=== PATIENT | female | born 2000 | race Caucasian/White ===

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

== ENCOUNTER → 2021-07-19 13:11 | Outpatient (CLI) | payer OTHER, SELFPAY ==
[2021-07-19 15:13] LABS: HCG,Quantitative 29118 mIU/ml (0-5.42)
== END ==
PROVIDERS: Visit Provider Nurse Practitioner Obstetrics & Gynecology
DX: N92.6 Irregular menstruation, unspecified (principal)
CPT/HCPCS: 36415; 84702

== ENCOUNTER → 2021-08-20 17:58 | Outpatient (CLI) | payer OTHER, SELFPAY ==
[2021-08-22 23:13] LABS: Neisseria gonorrhoeae, NAA Negative (Negative)
== END ==
PROVIDERS: PCP Internal Medicine; Visit Provider Nurse Practitioner Obstetrics & Gynecology
DX: Z34.90 Encounter for supervision of normal pregnancy, unspecified, unspecified trimester (principal)
CPT/HCPCS: 87491; 87591

== ENCOUNTER → 2021-08-21 12:18 | Outpatient (CLI) | payer OTHER, SELFPAY ==
[2021-08-21 13:19] LABS: Basophils % 0.3 % (0.1-2.0); Eosinophils # 0.4 K/mm3 (0.0-0.4); Eosinophils % 3.8 % (0.1-12.0); Hematocrit 36.6 % (37.0-47.0); Hemoglobin 11.3 g/dL (12.2-16.2); Lymphocytes # 1.6 K/mm3 (0.7-4.5); Lymphocytes % 14.6 % (10-50); Mean Corpuscular Hemoglobin 21.8 pg (27.0-31.2); Mean Corpuscular Volume 70.3 fl (81-99); Mean Platelet Volume 6.6 fl (7.4-10.4); Monocytes # 0.4 K/mm3 (0.1-1.0); Monocytes % 3.5 % (1.7-9.3); Neutrophils # 8.2 K/mm3 (1.8-7.8); Neutrophils % 77.7 % (37.0-80.0); Platelet Count 444 K/mm3 (142-424); White Blood Count 10.6 K/mm3 (4.5-13.0)
[2021-08-22 10:14] LABS: HSV 2 IgG, Type Spec <0.91 index (0.00-0.90); Rubella Antibodies, IgG 3.05 index (Immune >0.99)
[2021-08-22 12:35] LABS: HIV Screen 4th Generation wRfx Non Reactive (Non Reactive); Hepatitis B Surface Antigen Negative (Negative); Hepatitis C Antibody <0.1 s/co ratio (0.0-0.9); Rapid Plasma Reagin Ab Titer Non Reactive (NonRea<1:1)
== END ==
PROVIDERS: PCP Internal Medicine; Visit Provider Nurse Practitioner Obstetrics & Gynecology
DX: Z34.90 Encounter for supervision of normal pregnancy, unspecified, unspecified trimester (principal)
CPT/HCPCS: 36415; 85025; 86592; 86695; 86703; 86762; 86790; 86850; 87340; 87380; G0432

== ENCOUNTER → 2021-08-23 13:00 | Outpatient (CLI) | payer OTHER, SELFPAY ==
--- NOTE | 2021-08-23 13:00 | US_ITS ---
FINAL REPORT CLINICAL HISTORY: 20wk + anatomy scan-US OB COMPLETE FINDINGS: There is a single live intrauterine gestation. Presentation is breech. The cervix is closed and measures 4 cm. Placenta is posterior and fundal. Cardiac activity is confirmed at 149 bpm. The uterus is otherwise normal. The ovaries are not visualized. The fetus is active. Three-vessel cord with satisfactory umbilical cord insertion. Four-chamber heart is noted. brain and ventricles are unremarkable. Chest and diaphragm are unremarkable. ABDOMEN: Both kidneys are unremarkable. Stomach is unremarkable. SPINE: No anomalies identified. Both arms and legs noted. AMNIOTIC FLUID: Appropriate amount. MEASUREMENTS: ULTRASOUND AGE: 23 weeks 0 days. ESTIMATED WEIGHT: 586 g BPD: 5.5 cm consistent with 22 weeks 6 days. OFD: 6.8 cm consistent with 22 weeks 2 days. HC: 19.5 cm consistent with 21 weeks 5 days. AC: 17.8 cm consistent with 22 weeks 5 days. FL: 4.5 cm consistent with 24 weeks 5 days. CEREBELLUM: 2.3 cm consistent with 23 weeks 0 days. HUMERUS: 4 cm consistent with 24 weeks 3 days. IMPRESSION: Single living IUP with an ultrasound age of 23 weeks 0 days. Reviewed, Interpreted and Dictated by Doug Huff III, MD Transcribed by Albaro Jenkins Authenticated by Doug Huff III, MD on 08/23/2021 02:27:57 PM [facility]
== END ==
PROVIDERS: PCP Internal Medicine; Visit Provider Nurse Practitioner Obstetrics & Gynecology
DX: Z36.0 Encounter for antenatal screening for chromosomal anomalies (principal)
CPT/HCPCS: 76811

== ENCOUNTER → 2021-09-24 10:24 | Outpatient (CLI) | payer OTHER, SELFPAY ==
[2021-09-24 11:25] LABS: Glucose,Fasting 78 mg/dl (74-100)
[2021-09-24 12:27] LABS: Glucose 1 Hour 119 mg/dL (74-100)
== END ==
PROVIDERS: PCP Internal Medicine; Visit Provider Nurse Practitioner Obstetrics & Gynecology
DX: Z34.90 Encounter for supervision of normal pregnancy, unspecified, unspecified trimester (principal)
CPT/HCPCS: 36415; 82951

== ENCOUNTER → 2021-11-18 12:46 | Outpatient (CLI) | payer OTHER, SELFPAY ==
--- NOTE | 2021-11-18 12:55 | US_ITS ---
FINAL REPORT CLINICAL HISTORY: SGA and Decreased Movement FINDINGS: There is a single live intrauterine gestation. Presentation is cephalic. The cervix is closed and measures 4.4 cm. Placenta is left lateral and grade 2-3. movement is noted. Heart rate of 146 beats per minute. AMNIOTIC FLUID: 6.1 cm, lower end of normal MEASUREMENTS: ULTRASOUND AGE: 34 weeks 1 day. GESTATION AGE: 35 weeks 3 days. ESTIMATED WEIGHT: 2204 g GROWTH PERCENTILE: 8% BPD: 8.52 cm consistent with 34 weeks 3 days. OFD: 10.82 cm consistent with 34 weeks 5 days. HC: 30.59 cm consistent with 34 weeks 1 day. AC: 27.89 cm consistent with 32 weeks 0 days. FL: 6.94 cm consistent with 35 weeks 5 days. HC/AC: 1.10 CI: 79% FL/BPD: 81% FL/AC: 25% IMPRESSION: Single living IUP with an ultrasound age of 34 weeks 1 day. Abdominal circumference is low. Cannot exclude intrauterine growth retardation. ANG on the lower end of normal. Reviewed, Interpreted and Dictated by Doug Huff III, MD Transcribed by Raiza Castorena Authenticated by Doug Huff III, MD on 11/18/2021 03:55:23 PM [facility]
== END ==
PROVIDERS: PCP Internal Medicine; Visit Provider Nurse Practitioner Obstetrics & Gynecology
DX: O36.5990 Maternal care for other known or suspected poor fetal growth, unspecified trimester, not applicable or unspecified (principal)
CPT/HCPCS: 76816; 76819

== ENCOUNTER 2021-11-19 10:01 | Outpatient (CLI) | payer OTHER, SELFPAY ==
[2021-11-19 10:13] VITALS: BMI 35.1
== END 2021-11-19 10:43 | disposition home or self-care (01) ==
LOC: OBOUT 10:03 → OB 10:06
PROVIDERS: PCP Internal Medicine; Visit Provider Nurse Practitioner Obstetrics & Gynecology
DX: O26.893 Other specified pregnancy related conditions, third trimester (principal); Z3A.35 35 weeks gestation of pregnancy
CPT/HCPCS: 96372; G0463

== ENCOUNTER 2021-11-20 11:16 | Outpatient (CLI) | payer OTHER, SELFPAY | END 2021-11-20 11:45 | disposition home or self-care (01) | LOC: OBOUT 11:17 → OB 11:20 | PROVIDERS: PCP Internal Medicine; Visit Provider Nurse Practitioner Obstetrics & Gynecology | DX: O41.00X0 Oligohydramnios, unspecified trimester, not applicable or unspecified (principal); Z3A.35 35 weeks gestation of pregnancy ==

== ENCOUNTER → 2021-11-22 16:28 | Outpatient (CLI) | payer OTHER, SELFPAY | PROVIDERS: Visit Provider Nurse Practitioner Obstetrics & Gynecology | DX: Z34.90 Encounter for supervision of normal pregnancy, unspecified, unspecified trimester (principal) | CPT/HCPCS: 86403 ==

== ENCOUNTER 2021-11-26 10:06 | Inpatient (IN) | payer OTHER, SELFPAY ==
[2021-11-26] VITALS (13 sets, daily range): BP systolic 118–164; BP diastolic 72–115; PULSE 49–85; RESP 12–18; TEMP 36.2–36.8; O2SAT 96–100; BMI 35.4
--- NOTE | 2021-11-26 10:44 | HMH.OBAPHP ---
OB - H&P: HPI Antepartum - History of Present Illness Chief complaint: Small for gestational age, previous section, oligohydramnios History of present illness: She is a 21-year-old 2 para 1 who has had a previous section. She was scheduled at 39 weeks for a section but was seen today in the office and the baby measures 6 centile with absolute oligohydramnios. As result of that we are going to go ahead with a repeat section today. She did have something to eat at around 9:00 this morning so we will do her after 3 PM this afternoon. We discussed the risks of surgery that includes bleeding, infection, injuries to the bowel and bladder. We discussed the rare risk of DVT. We discussed the need for antibiotic prophylaxis. All questions were answered and consents were signed. - History of Present Criteria for establishing EDC:: LMP confirmed by 2nd trimester US care: good care Ultrasounds: normal mid trimester US Obstetrical complications: previous , other Medical complications: none [facility] History I have reviewed the patient's past medical history: Yes *Have you ever received a pneumonia vaccine?: No *Have you received a flu vaccine this season?: No Other Surgeries: Yes: No Previous Surgery, Amputation: No Fractures: No - *Social History Smoking Status: Current every day smoker Tobacco Type: cigarettes Alcohol Intake: never Alcohol Intake Frequency:: other Substance Use Type: marijuana, denies use *Occupational Status:: employed *Travel in the last 8 weeks: None Family Hx:: No significant family history Review of Systems - Review of Systems Review of systems:: pertinent systems reviewed and negative unless documented below Meds Home Medications Medication Instructions Recorded Confirmed Type Ferrous Sulfate 325 mg PO DAILY 11/26/21 11/26/21 History Vit No.126/Iron/Folic 1 tab PO DAILY 11/26/21 11/26/21 History [Classic ] Allergies Allergy/AdvReac Type Severity Reaction Status Date / Time No Known Allergies Allergy Verified 11/26/21 09:33 OB - H&P: Exam - Constitutional no acute distress - Routine HEENT Exam Head: Present: normocephalic Eye: Present: EOMI, PERRL ENT: Present: mucous membranes moist - Routine Neck Exam Present: supple, full ROM - Routine Respiratory Exam Absent: accessory muscle use (good air entry bilaterally), respiratory distress, wheezes, crackles - Routine Cardiovascular Exam Present: RRR. Absent: murmur - Routine Abdominal Exam Present: soft, normoactive bowel sounds. Absent: tenderness, distended, guarding - Routine Rectal Exam Patient deferred: visual exam, digital exam - Routine Exam Patient deferred: external exam, groin exam, perineal exam - Routine Extremities Exam Present: full ROM. Absent: cyanosis, edema - Routine Skin Exam Present: intact. Absent: cyanosis - Routine Neurological Exam Present: alert, oriented X3 - Routine Psychiatric Exam Present: normal affect OB - A/P Antepartum (1) Oligohydramnios delivered Status: Acute (2) Previous section complicating Status: Acute (3) IUGR (intrauterine growth restriction) Status: Acute - Additional Plan Planning to breastfeed?: No Plan: other Additional Information:: She has absolute oligohydramnios today with severe IUGR. The abdominal circumference is about 5 weeks behind. She has had a previous section so we will go ahead with a repeat section today. She ate some food just before 9:00 this morning so we will do her around 3 this afternoon.
[2021-11-26 11:11] LABS: Coronavirus 19, PCR Not Detected (NotDetected); Influenza A, PCR Not Detected (NotDetected); Influenza B, PCR Not Detected (NotDetected)
[2021-11-26 11:18] LABS: Basophils # 0.1 K/mm3 (0-0.2); Basophils % 1.3 % (0.1-2.0); Eosinophils # 0.2 K/mm3 (0.0-0.4); Eosinophils % 1.8 % (0.1-12.0); Hematocrit 42.1 % (37.0-47.0); Hemoglobin 14.4 g/dL (12.2-16.2); Lymphocytes # 1.3 K/mm3 (0.7-4.5); Mean Corpuscular HGB Conc 34.1 g/dL (31.8-35.4); Mean Corpuscular Hemoglobin 28.3 pg (27.0-31.2); Mean Platelet Volume 8.2 fl (7.4-10.4); Monocytes # 0.5 K/mm3 (0.1-1.0); Monocytes % 4.7 % (1.7-9.3); Neutrophils # 8.9 K/mm3 (1.8-7.8); Neutrophils % 80.1 % (37.0-80.0); Platelet Count 292 K/mm3 (142-424); Red Blood Count 5.08 M/mm3 (4.20-5.40); Red Cell Distribution Width 20.2 % (11.5-17.5); White Blood Count 11.2 K/mm3 (4.5-13.0)
[2021-11-26 11:22] LABS: Amphetamine/Metha Screen,Urine Negative ng/ml (<1000)
[2021-11-26 11:23] LABS: Barbiturates Screen,Urine Negative ng/ml (<200)
[2021-11-26 11:24] LABS: Benzodiazepines Screen,Urine Negative ng/ml (<200); Cannabinoid Screen,Urine Negative ng/ml (<50)
[2021-11-26 11:25] LABS: Cocaine Screen,Urine Negative ng/ml (<300)
[2021-11-26 11:26] LABS: Methadone Screen,Urine Negative ng/ml (<300); Opiate Screen,Urine Negative ng/ml (<300)
[2021-11-26 11:27] LABS: Phencyclidine Screen,Urine Negative ng/ml (<25)
[2021-11-26 11:33] LABS: Chloride 105 mmol/L (98-107)
[2021-11-26 11:34] LABS: Potassium 3.6 mmoL/L (3.5-5.1); Sodium 134 mmol/L (136-145)
[2021-11-26 11:37] LABS: Anion Gap 10.6 mEq/L (5-15); Blood Urea Nitrogen 8 mg/dl (7-17); Carbon Dioxide 22 mmol/L (22.0-30.0); Creatinine Clearance Estimated 249 mL/min (50-200); Estimated Glomerular Filt Rate 157 ml/min (>60); GFR (African American) 190 ML/MIN (>60); Glucose 106 mg/dl (74-100)
--- NOTE | 2021-11-26 16:09 | P.PN_ITS ---
[facility] Anesthesia Checklist - Structural Data Admitted From: Inpatient Planned Operative Procedure/s: c/section Consent for Planned Operative Procedure(s) Verified: Yes - Additional verifications Anesthesia Reactions: No - Airway Assessment C-Spine Mobility Assessed: Yes TMJ Mobility Assessed: Yes Dentition: Poor Dentition - Neurological Assessment Level of Consciousness: Awake, Alert, Appropriate - Anesthesia Plan Anesthesia Risk discussed: Yes Anesthesia Plan: Verified ASA Class: II Anesthesia Type: Spinal [facility] History I have reviewed the patient's past medical history: Yes *Have you ever received a pneumonia vaccine?: No *Have you received a flu vaccine this season?: No Anesthesia experience/problems:: none Other Surgeries: Yes: No Previous Surgery. No: Amputation: No Fractures: No - *Social History Smoking Status: Current every day smoker Tobacco Type: cigarettes Alcohol Intake: never Alcohol Intake Frequency:: other Substance Use Type: marijuana, denies use *Occupational Status:: employed *Travel in the last 8 weeks: None Family Hx:: No significant family history Para: 1
--- NOTE | 2021-11-26 16:10 | P.PN_ITS ---
[facility] Anesthesia Record Part I Intake, IV Amount: 1,000 Estimated blood loss (mL): 600 Urine output (mL): 350 Blood Pressure: 141/76 SaO2: 99 Pulse Rate: 66 Respiratory Rate: 12 Temperature: 97.2 F Patient is:: Awake, Stable Stable to PACU at:: 16:05
[2021-11-26 17:06] LABS: Microscopic,Cath URINE MICROSCOPIC (MICROSCOPIC)
[2021-11-26 17:19] LABS: Appearance,Urine/Cath CLEAR (Clear); Bilirubin,Cath Negative (Negative); Blood, Urine/Cath TRACE-I (Negative); Color,Urine/Cath YELLOW (Yellow); Glucose,Urine/Cath (UA) Negative (Negative); Ketones,Urine/Cath Negative (Negative); Leukocyte Esterase,Cath Negative (Negative); Nitrate,Cath Negative (Negative); Protein,Urine/Cath Negative (Negative); Specific Gravity, Urine/Cath 1.015 (1.005-1.030); Urobilinogen,Cath 0.2 EU/dl (0.2)
--- NOTE | 2021-11-26 17:53 | HMH.OPNOTE ---
Date of procedure: 11/26/21 Pre-op Diagnosis:: Severe IUGR, oligohydramnios, previous section Post-op Diagnosis:: Severe IUGR, previous section, oligohydramnios Procedure performed:: Repeat lower segment transverse section Surgeon:: Filippo Butler MD Staffing Director(s):: Dr. Coon GTA:: Richard Lopez Anesthesia: spinal Estimated blood loss (mL): 600 Clinical Note:: She is a 21-year-old 3 para 1 aborta 1 who was 36 and 4 weeks gestational age. She had good dates. She had an ultrasound at 23 weeks that confirmed her dates. She was in my office today and had no fluid around the baby. The baby was also extremely asymmetrically intrauterine growth restricted. SD ratio was normal. There was breathing movement. She did receive steroids last week because she did have moderately low fluid at that time. As result of the low fluid and IUGR we will go ahead with a repeat section today. Operative findings:: The baby had no fluid around it. She had a normal-appearing uterus. Ovaries and tubes appeared normal. The baby had Apgars of 8 at 1 minute and 9 at 5 minutes. She was born at 3:28 PM she weighs 4 pounds 7 ounces. Operative note:: She was taken to the operating room where spinal anesthesia was found be adequate. She was prepped and draped in normal sterile fashion in the supine position with a leftward tilt. A Sanchez catheter was in the bladder. A Pfannenstiel skin incision was made with knife then carried through to the underlying layer of fascia with cautery. The fascia was opened in the midline with cautery and extended laterally using Villarreal scissors. Cummaquid clamps were applied to the superior aspect of the fascial incision which was tented up and the underlying rectus muscles dissected off using cautery. The Behzad clamps were then applied to the inferior aspect of the fascial incision which in a similar fashion was tented up and the underlying rectus muscles dissected off using cautery. The rectus muscles were then in the midline, the peritoneum identified, and entered sharply with Metzenbaum scissors. This incision was then extended superiorly and inferiorly with cautery. We had good visualization of the bladder inferiorly. The bladder peritoneum was then opened in the midline and extended laterally using Metzenbaum scissors. A bladder flap was created digitally. Transverse incision was made through the uterine muscle to the amnion. This incision was then extended laterally using fingers traction. The amnion was entered sharply with knife. There was minimal clear amniotic fluid. The 's head was then delivered atraumatically. This was followed by the anterior shoulder and the rest of the infant's body atraumatically. The oropharynx and nasopharynx were bulb suctioned. The infant was vigorous and we allowed the cord to continue to pulsate for approximately 1 minute. The cord was then doubly clamped and cut. The was then handed off to Dr. Scott who assigned Apgars of 8 at 1 minute and 9 at 5 minutes. We then obtained cord blood. Using gentle traction on the cord and countertraction on the fundus I was able to easily deliver the placenta intact. It had a normal three-vessel cord. The uterus was then cleared of clots and debris . The uterine incision was then closed using running 0 Vicryl suture in a locked fashion. A second layer of the same suture was used to imbricate the first layer. The bladder peritoneum was then closed using running 2-0 Vicryl suture in a locked fashion. There was a small amount of bleeding along the medial aspect of the incision and interrupted [id number] sutures were used here to obtain hemostasis. The gutters and cul-de-sac were then cleared of clots and debris . Once again hemostasis was assured. The uterus was then returned to the abdominal cavity. The peritoneum was grasped with Franca clamps and closed using running 2-0 Vicryl suture. The rect
[2021-11-26 18:00] LABS: Magnesium 1.5 mg/dl (1.6-2.3)
[2021-11-26 18:01] LABS: Bacteria,Urine/Cath TRACE /lpf; WBC,Urine/Cath Occasional #/hpf (0-3)
[2021-11-27 00:33] LABS: Hematocrit 29.5 % (37.0-47.0)
[2021-11-27 00:38] LABS: Hemoglobin 10.4 g/dL (12.2-16.2)
[2021-11-27 06:52] LABS: Hemoglobin 9.7 g/dL (12.2-16.2)
--- NOTE | 2021-11-27 08:41 | P.PN_ITS ---
Internal Medicine - PN: Subj *Date: 11/27/21 *Time: 08:41 Interval history: She is doing well this morning. She had some hemorrhage yesterday and passed a number of clots. This was a few hours after her surgery. We were able to evacuate the clots and she received 1 dose of Hemabate. She is doing better today. Her lochia is normal. She is breast-feeding. Her pain is well controlled with the T AP block. Exam Vital signs and Labs for Last 24 Hours: Temp Pulse Resp BP Pulse Ox 97.8 F 85 14 129/80 98 11/26/21 16:35 11/26/21 17:54 11/26/21 16:35 11/26/21 17:54 11/26/21 17:54 Laboratory Results - last 24 hr 11/26/21 10:37: SARS-CoV-2 (PCR) Not detected, Influenza A Untype (PCR) Not detected, Influenza Type B (PCR) Not detected 11/26/21 10:50: WBC 11.2, RBC 5.08, Hgb 14.4, Hct 42.1, MCV 83.0, MCH 28.3, MCHC 34.1, RDW 20.2 H, Plt Count 292, MPV 8.2, Neut % (Auto) 80.1 H, Lymph % (Auto) 12.0, [place] % (Auto) 4.7, Eos % (Auto) 1.8, Baso % (Auto) 1.3, Neut # (Auto) 8.9 H, Lymph # (Auto) 1.3, [place] # (Auto) 0.5, Eos # (Auto) 0.2, Baso # (Auto) 0.1 11/26/21 10:50: Blood Type O Positive, Antibody Screen Negative, Crossmatch (AHG) See Detail 11/26/21 10:50: Sodium 134 L, Potassium 3.6, Chloride 105, Carbon Dioxide 22, Anion Gap 10.6, BUN 8, Creatinine 0.50 L, Estimated Creat Clear 249, Estimated GFR 157, Est GFR ( Amer) 190, Glucose 106 H, Calcium 9.0 11/26/21 10:50: Magnesium 1.5 L 11/26/21 15:15: Urine Color Yellow, Urine Appearance Clear, Urine pH 8.0, Ur Specific [place] 1.015, Urine Protein Negative, Urine Glucose (UA) Negative, Urine Ketones Negative, Urine Blood Trace-i, Urine Nitrate Negative, Urine Bilirubin Negative, Urine Urobilinogen 0.2, Ur Leukocyte Esterase Negative, Urine RBC None, Urine WBC Occasional, Ur Squamous Epith Cells None, Urine Bacteria Trace 11/26/21 : Urine Opiates Screen Negative, Urine Methadone Screen Negative, Ur Barbituates Screen Negative, Ur Phencyclidine Scrn Negative, Ur Amphetamines Screen Negative, U Benzodiazepines Scrn Negative, Urine Cocaine Screen Negative, U Marijuana (THC) Screen Negative 11/27/21 00:24: Hgb 10.4 L D, Hct 29.5 L 11/27/21 06:39: Hgb 9.7 L, Hct 28.0 L I & O for Last 24 hours: Intake & Output 11/24/21 11/25/21 11/26/21 11/27/21 11:59 11:59 11:59 11:59 Intake Total 1000 / 1000 Balance 1000 / 1000 Weight 194 lb - Constitutional no acute distress - *Routine Abdominal Exam Present: soft, normoactive bowel sounds. Absent: tenderness Comments: Incision is clean and dry. Assessment and Plan (1) Oligohydramnios delivered Status: Acute Category: Medical Code(s): O41.00X0 - Oligohydramnios, unspecified trimester, not applicable or unspecified (2) Previous section complicating Status: Acute Category: Surgical Code(s): O34.219 - Maternal care for unspecified type scar from previous delivery (3) IUGR (intrauterine growth restriction) Status: Acute Category: Medical (4) Anemia, Status: Acute Category: Medical Code(s): O90.81 - Anemia of the puerperium - Assessment and plan all Dx Assessment and Plan for all problems:: She is doing very well this morning. We will plan to send her home likely tomorrow. The baby only weighed 4 pounds 7 ounces at and we will consider keeping the baby a little longer.
--- NOTE | 2021-11-27 10:04 | P.PN_ITS ---
[facility] Anesthesia Record Part II Discharge Time: 16:35 Destination: Obstetric PACU nurse assessment reviewed?: Yes Patient Condition:: Good Anesthesia Complications:: None Swallowing reflex intact?: Yes Cyanosis?: No Blood Pressure: 136/85 Pulse Rate: 58 Temperature: 97.8 F Mental Status: Alert & Oriented Pain level:: 0 Nausea and/or vomitting:: None Intake, IV Amount: 0
[2021-11-27 10:05] VITALS: BP 136/85; PULSE 58; TEMP 36.6
--- NOTE | 2021-11-27 14:03 | SW/DCPLANNER ---
Addendum entered by Omayra Valero 11/28/21 09:44: This case did NOT meet criteria per Central Intake. Original Note: I received a referral for this patient due to previous CPS case. Patient delivered infant female (Argentina Drew) on 11/26/2021. 's father is involved: Luis Drew (previously known at Luis Penaloza) 04/07/1996. Patient, uLis, infant and maternal grandparents (Maame Martines and Dragan Curtis) will reside at [address] [place] [address] in [place] [address]. Patient's contact number is [phone]. Patient's other daughter (Sandra Drew 03/14/19) will reside at this address as well. Patient did have previous Social Service involvement with this patient due to positive THC use during . Patient is currently established with [facility] and has the following items at home: crib, carseat, clothing, diapers and will be bottle feeding. Patient is expected to discharge on 11/28 or 11/29 and will discharge home on 11/30 or 12/01. I did report this case to Central Intake due to late care and previous Social Service involvement: ID#[id number].
[2021-11-27 18:43] VITALS: BP 118/80; PULSE 86; RESP 18; TEMP 36.4; O2SAT 100
[2021-11-27 19:45] VITALS: BP 126/66; PULSE 78; RESP 18; TEMP 36.8; O2SAT 99
[2021-11-28 00:10] VITALS: BP 129/66; PULSE 81; RESP 17; TEMP 36.8; O2SAT 95
[2021-11-28 04:00] VITALS: BP 117/64; PULSE 81; RESP 18; TEMP 36.9; O2SAT 98
--- NOTE | 2021-11-28 11:21 | HMH.ACPN2 ---
Internal Medicine - PN: Subj *Date: 11/28/21 *Time: 11:21 Interval history: She continues to do well. We will plan to send her home tomorrow. Her pain is well controlled. She is breast-feeding. Exam Vital signs and Labs for Last 24 Hours: Temp Pulse Resp BP Pulse Ox 98.4 F 81 18 117/64 98 11/28/21 04:00 11/28/21 04:00 11/28/21 04:00 11/28/21 04:00 11/28/21 04:00 I & O for Last 24 hours: Intake & Output 11/25/21 11/26/21 11/27/21 11/28/21 11:59 11:59 11:59 11:59 Intake Total 1000 / 1000 Balance 1000 / 1000 Weight 194 lb - Constitutional no acute distress - *Routine HEENT Exam Head: Present: normocephalic Eye: Present: EOMI, PERRL ENT: Present: mucous membranes moist Assessment and Plan (1) Oligohydramnios delivered Status: Acute Category: Medical Code(s): O41.00X0 - Oligohydramnios, unspecified trimester, not applicable or unspecified (2) Previous section complicating Status: Acute Category: Surgical Code(s): O34.219 - Maternal care for unspecified type scar from previous delivery (3) IUGR (intrauterine growth restriction) Status: Acute Category: Medical (4) Anemia, Status: Acute Category: Medical Code(s): O90.81 - Anemia of the puerperium - Assessment and plan all Dx Assessment and Plan for all problems:: She is doing well. Her blood pressure has normalized. She is breast-feeding. Her incision is clean and dry. We will plan to send her home tomorrow.
[2021-11-28 20:00] VITALS: BP 126/71; PULSE 90; RESP 17; TEMP 36.7; O2SAT 97
[2021-11-29 05:00] VITALS: BP 117/61; PULSE 72; RESP 18; TEMP 36.7; O2SAT 98
[2021-11-29 09:05] VITALS: BP 133/80; PULSE 98; RESP 18; TEMP 36.7; O2SAT 97
--- NOTE | 2021-11-29 09:05 | HMH.OBDCSM ---
General - General Admission date:: 11/26/21 Discharge date: 11/29/21 HPI - History of Present Illness History of present illness: She is a 21-year-old 3 para 1 aborta 1 who was 36 and 4 weeks gestational age. She was seen in my office and an ultrasound showed that she had an extremely small for gestational age and complete oligohydramnios. She had a previous section and as result of that was offered repeat lower segment transverse section. Hospital Course Hospital Course: She underwent a repeat lower segment transverse section and delivered a liveborn female child at 3:28 PM in the afternoon of November 26, 2021. The baby weighed 4 pounds 7 ounces and was 17-1/2 inches long. She had Apgars of 8 at 1 minute and 9 at 5 minutes. She did have some bleeding in the period but she received oxytocin and 1 dose of Hemabate. She is slightly anemic . She has O+ blood, she is well immune and her group B streptococcus status was unknown. We were still awaiting the results of that test. She will be discharged home to follow-up with me in approximately 2 weeks time. She will continue with her vitamins and iron. She was given the usual instructions with respect to limiting her activity, driving and sexual activity. She was given a prescription for Percocet 5/325 number 12 tablets. She is just taking Tylenol and Motrin at this point in time but she did have a T AP block. Her condition on discharge is stable and improved. Rhogam Administration: Not Indicated Objective Vital signs: Temp Pulse Resp BP Pulse Ox 98.1 F 72 18 117/61 98 11/29/21 05:00 11/29/21 05:00 11/29/21 05:00 11/29/21 05:00 11/29/21 05:00 no acute distress - *Routine HEENT Exam Head: Present: normocephalic Eye: Present: EOMI, PERRL ENT: Present: mucous membranes moist DS: Diagnosis - Discharge Diagnosis (1) Oligohydramnios delivered Status: Acute (2) Previous section complicating Status: Acute (3) IUGR (intrauterine growth restriction) Status: Acute (4) Anemia, Status: Acute Discharge Plan - Patient Discharge Instructions ACTIVITY: No heavy lifting DIET: continue same diet - Follow up Plan Follow up with: Filippo Butler MD [Staff Physician] - 12/12/21 10:45 am Disposition: Home, Self-Care Condition at discharge:: Stable Home Medications: Home Medications Medication Instructions Recorded Confirmed Type Ferrous Sulfate 325 mg PO DAILY 11/26/21 11/26/21 History Vit No.126/Iron/Folic 1 tab PO DAILY 11/26/21 11/26/21 History [Classic ] Oxycodone HCl/Acetaminophen 1 tab PO Q4-6H PRN #12 tab 11/29/21 Rx [Percocet 5/325mg tablet] Prescriptions/Medication Reconciliation: New Oxycodone HCl/Acetaminophen [Percocet 5/325mg tablet] 1 tab PO Q4-6H PRN #12 tab PRN Reason: Severe Pain Continued Vit No.126/Iron/Folic [Classic ] 1 tab PO DAILY Ferrous Sulfate 325 mg PO DAILY - Problem Reconciliation Problems Reviewed?: Yes
== END 2021-11-29 11:15 | disposition home or self-care (01) | DRG 787 ==
PROVIDERS: Admitting Provider Nurse Practitioner Obstetrics & Gynecology; PCP Internal Medicine; Visit Provider Nurse Practitioner Obstetrics & Gynecology
PROC: 10D00Z1 Extraction of Products of Conception, Low, Open Approach (ICD-10-PCS; CPT 59514; principal; 2021-11-26 15:00)
DX: O34.211 Maternal care for low transverse scar from previous cesarean delivery (principal); O41.03X0 Oligohydramnios, third trimester, not applicable or unspecified; O36.5930 Maternal care for other known or suspected poor fetal growth, third trimester, not applicable or unspecified; Z3A.39 39 weeks gestation of pregnancy; O99.334 Smoking (tobacco) complicating childbirth; O90.81 Anemia of the puerperium; F17.210 Nicotine dependence, cigarettes, uncomplicated; Z37.0 Single live birth
CPT/HCPCS: 59514; 36415; 59025; 80048; 80305; 81001; 83735; 85014; 85018; 85025; 86850; 88307; 94761; C9803; G0283; J2405; U0003; U0005